=== PATIENT | male | born 1975 ===

== ENCOUNTER 2020-12-21 07:53 | Day surgery (SDC) | payer OTHER | END 2020-12-21 13:30 | disposition home or self-care (01) | LOC: AMB-ENDOS 07:53 | PROVIDERS: ATTEND Colon & Rectal Surgery | DX: D13.1 Benign neoplasm of stomach (principal); K57.32 Diverticulitis of large intestine without perforation or abscess without bleeding; K44.9 Diaphragmatic hernia without obstruction or gangrene; Z20.822 Contact with and (suspected) exposure to COVID-19 ==

== ENCOUNTER 2021-05-22 09:45 | Inpatient (IN) | payer OTHER ==
[~2021-05-22] VITALS: Ht 170.2 cm; Wt 93.0 kg
[2021-05-22] MEDS ORDERED: SYNTHROID125 MCG PO (13:53)
[2021-05-28] MEDS ORDERED: FAMOTIDINE20 MG (08:11)
[2021-05-28] MEDS ORDERED: LINZESS145 MCG (08:11)
[2021-05-28] MEDS ORDERED: DOK100 MG (08:11)
[2021-05-28] MEDS ORDERED: LANSOPRAZOLE30 MG (08:12)
[2021-05-28] MEDS ORDERED: SUCRALFATE1 GM (08:12)
== END 2021-06-04 20:05 | disposition home or self-care (01) | DRG 330 ==
LOC: O/R 05-28 05:55 → SURH 05-28 05:55
PROVIDERS: ADMIT Colon & Rectal Surgery; ATTEND Colon & Rectal Surgery
PROC: 0DTN4ZZ Resection of Sigmoid Colon, Percutaneous Endoscopic Approach (ICD-10-PCS; 2021-05-28)
PROC: 3E0F7SF Introduction of Other Gas into Respiratory Tract, Via Natural or Artificial Opening (ICD-10-PCS; 2021-05-28)
PROC: 0DTP4ZZ Resection of Rectum, Percutaneous Endoscopic Approach (ICD-10-PCS; principal; 2021-05-28 22:30)
DX: K57.32 Diverticulitis of large intestine without perforation or abscess without bleeding (principal); K92.1 Melena; K91.89 Other postprocedural complications and disorders of digestive system; K56.7 Ileus, unspecified; Y83.8 Other surgical procedures as the cause of abnormal reaction of the patient, or of later complication, without mention of misadventure at the time of the procedure; K29.60 Other gastritis without bleeding; K21.9 Gastro-esophageal reflux disease without esophagitis